=== PATIENT | female | born 1995 ===

== ENCOUNTER 2020-04-19 10:35 | Inpatient (IN) | payer BC ==
[2020-04-19] MEDS ORDERED: Acetaminophen 500 MG Tab PO SCH (13:15)
[2020-04-19 13:40] LABS: BLOOD UREA NITROGEN,BUN 11 mg/dL (7.0-18.0); CARBON DIOXIDE,CO2 19.3 mmol/L (21.0-32.0); CHLORIDE,CL 108 mmol/L (98-107); GLUCOSE RANDOM 74 mg/dL (74-106); SODIUM,NA 139 mmol/L (136-145)
[2020-04-19] MEDS ORDERED: Misoprostol 200 MCG Tab PO PRN (16:02)
[2020-04-19] MEDS ORDERED: Carboprost Tromethamine 250 MCG/1 ML Amp IM PRN (16:02)
[2020-04-19] MEDS ORDERED: Water For Irrigation,Sterile 1,000 ML Container IRR PRN (16:02)
[2020-04-19] MEDS ORDERED: Lidocaine 1% 50 ML MDV INJECT PRN (16:02)
[2020-04-19] MEDS ORDERED: Tranexamic Acid 1,000 MG in Sodium Chloride 0.9% 100 ML IV PRN (16:02)
[2020-04-19] MEDS ORDERED: Methylergonovine 0.2 MG/1 ML Amp IM PRN (16:02)
[2020-04-19] MEDS ORDERED: Sodium Chloride 0.9% 2.5 ML Syringe FLUSH PRN (16:02)
[2020-04-19] MEDS ORDERED: Terbutaline 1 MG/ML SDV SUBCUT PRN (16:02)
[2020-04-19] MEDS ORDERED: Ampicillin 2 GM in Sodium Chloride 0.9% 100 ML IV ONE (16:02)
[2020-04-19] MEDS ORDERED: Nalbuphine 10 MG/1 ML Vial IVPUSH PRN (16:02)
[2020-04-19] MEDS ORDERED: Misoprostol 25 MCG (1/4 of 100 MCG) Tab PO PRN ×2 (16:02)
[2020-04-19] MEDS ORDERED: Sodium Chloride 0.9% 10 ML SDV IV PRN (16:02)
[2020-04-19] MEDS ORDERED: Sodium Chloride 0.9% 10 ML Syringe FLUSH PRN (16:02)
[2020-04-19] MEDS ORDERED: Butorphanol 1 MG/ML SDV IVPUSH PRN (16:02)
[2020-04-19] MEDS ORDERED: Misoprostol 25 MCG (1/4 of 100 MCG) Tab VAG PRN ×2 (16:02)
[2020-04-19] MEDS ORDERED: Oxytocin/0.9 % Sodium Chloride 30 UNIT/500 ML BAG IV SCH ×2 (16:15)
--- NOTE | 2020-04-19 16:47 | PCM.LDHP ---
L&D History of Present Illness - General Date of Service: 04/19/20 Admit Problem/Dx: Patient Status Order with Admit Dx/Problem 04/19/20 12:31 Patient Status [ADT] Routine 04/19/20 15:00 Patient Status [ADT] Routine Admission Diagnosis/Problem Admission Diagnosis/Problem 04/19/20 16:40 at 36 2/7 weeks (DAVION: 05/15/20) presenting to L&D with BPs trending upward the past two days; consistently 130-140s/90s. Bilateral non-pitting edema and headache. Urine showing increasing protein with urine protein creatinine ratio doubling over the last 24 hours. O+, Rubella immune, GBS positive. Source of Information: Patient History Limitations: Reports: No Limitations - History of Present Illness Pain Score: 7 - Related Data Allergies/Adverse Reactions: Allergies Allergy/AdvReac Type Severity Reaction Status Date / Time No Known Allergies Allergy Verified 02/29/20 14:17 Home Medications: Home Meds metFORMIN [Glucophage] 500 mg PO BIDMEALS 02/29/20 [History] H&P Review of Systems - Review of Systems: Review Of Systems: See Below General: Reports: No Symptoms HEENT: Reports: No Symptoms Pulmonary: Reports: No Symptoms Cardiovascular: Reports: No Symptoms Gastrointestinal: Reports: No Symptoms Genitourinary: Reports: No Symptoms Musculoskeletal: Reports: No Symptoms Skin: Reports: No Symptoms Psychiatric: Reports: No Symptoms Neurological: Reports: No Symptoms Hematologic/Lymphatic: Reports: No Symptoms Immunologic: Reports: No Symptoms L&D Exam - Exam Exam: See Below - Vital Signs Weight: 172 lb - OB Specific Movement: Active Heart Tones: Present Heart Rate (FHR) Variability: Moderate (6-25 bmp) Presentation: Vertex - Cintron Score Cintron Score Cervix Position: Midposition Cintron Score Consistency: Soft Cintron Score Effacement: 31-50% Cintron Score Dilation: 1-2 cm Cintron Score 's Station: -2 Cintron Score Total: 6 - Exam General: Alert, Oriented, Cooperative Lungs: Clear to Auscultation, Normal Respiratory Effort Cardiovascular: Regular Rate, Regular Rhythm GI/Abdominal Exam: Soft, Non-Tender Rectal Exam: Deferred Genitourinary: Deferred Back Exam: Normal Inspection, Full Range of Motion Extremities: Normal Inspection, Normal Range of Motion, Non-Tender, Normal Capillary Refill Skin: Warm, Dry, Intact Neurological: Strength Equal Bilateral, Normal Gait, Normal Speech, Normal Tone, Sensation Intact Psychiatric: Alert, Normal Affect, Normal Mood - Patient Data Lab Results Last 24 hrs: Laboratory Results - last 24 hr 04/19/20 04/19/20 04/19/20 Range/Units 13:00 13:00 13:20 WBC 6.03 (4.0-11.0) K/uL RBC 3.48 L (4.30-5.90) M/uL Hgb 8.9 L (12.0-16.0) g/dL Hct 28.5 L (36.0-46.0) % MCV 81.9 (80.0-98.0) fL MCH 25.6 L (27.0-32.0) pg MCHC 31.2 (31.0-37.0) g/dL RDW Std Deviation 40.2 (28.0-62.0) fl RDW Coeff of Maria D 13 (11.0-15.0) % Plt Count 207 (150-400) K/uL MPV 11.70 (7.40-12.00) fL Neut % (Auto) 68.9 (48.0-80.0) % Lymph % (Auto) 20.6 (16.0-40.0) % [place] % (Auto) 10.0 (0.0-15.0) % Eos % (Auto) 0.3 (0.0-7.0) % Baso % (Auto) 0.2 (0.0-1.5) % Neut # (Auto) 4.2 (1.4-5.7) K/uL Lymph # (Auto) 1.2 (0.6-2.4) K/uL [place] # (Auto) 0.6 (0.0-0.8) K/uL Eos # (Auto) 0.0 (0.0-0.7) K/uL Baso # (Auto) 0.0 (0.0-0.1) K/uL Nucleated RBC % 0.0 /100WBC Nucleated RBCs # 0 K/uL Sodium 139 (136-145) mmol/L Potassium 4.0 (3.5-5.1) mmol/L Chloride 108 H (98-107) mmol/L Carbon Dioxide 19.3 L (21.0-32.0) mmol/L BUN 11 (7.0-18.0) mg/dL Creatinine 0.7 (0.6-1.0) mg/dL Est Cr Clr Drug Dosing 103.40 mL/min Estimated GFR (MDRD) > 60.0 ml/min Glucose 74 (74-106) mg/dL Uric Acid 5.6 (2.6-7.2) mg/dL Calcium 8.0 L (8.5-10.1) mg/dL Total Bilirubin 0.3 (0.2-1.0) mg/dL AST 18 (15-37) IU/L ALT 17 (14-63) IU/L Alkaline Phosphatase 142 H (46-116) U/L Total Protein 5.8 L (6.4-8.2) g/dL Albumin 2.3 L (3.4-5.0) g/dL Globulin 3.5 (2.6-4.0) g/dL Albumin/Globulin Ratio 0.7 L (0.9-1.6) Ur Random Creatinine 190.2 mg/dL U Random Total Protein 264.7 H (<11.9) mg/dL Protein/Creatinin Ratio 1.4 Result Diagrams: 04/19/20 13:00 04/19/20 13:00 - Problem List (1) Supervision of normal IUP (intrauterine ) in primigravida SNOMED Code(s): 08561524, 173473727, 520765445, 623231569 ICD Code: Z34.00 - ENCNTR FOR SUPRVSN OF NORMAL FIRST , UNSP TRIMESTER Status: Acute Priority: High Current Visit: Yes Qualifiers: Trimester: third trimester Qualified Code(s): Z34.03 - Encounter for supervision of normal first , third trimester (2) PIH ( induced hypertension), antepartum SNOMED Code(s): 65087753, 15165099 ICD Code: O13.9 - GESTATIONAL HTN W/O SIGNIFICANT PROTEINURIA, UNSP TRIMESTER Status: Acute Priority: High Current Visit: Yes Problem List Initiated/Reviewed/Updated: Yes Orders Last 24hrs: Active Orders 24 hr Category Date Time Status Patient Status [ADT] Routine ADT 04/19/20 15:00 Active Bedrest Bathroom Privileges [RC] ASDIRECTED Care 04/19/20 16:02 Active Communication Order [RC] ASDIRECTED Care 04/19/20 16:02 Active Communication Order [RC] ASDIRECTED Care 04/19/20 16:02 Active Communication Order [RC] ASDIRECTED Care 04/19/20 16:02 Active Heart Tones [RC] CONTINUOUS Care 04/19/20 16:02 Active Non Stress Test [RC] PER UNIT ROUTINE Care 04/19/20 12:31 Active Non Stress Test [RC] PER UNIT ROUTINE Care 04/19/20 16:02 Active May Shower [RC] ASDIRECTED Care 04/19/20 16:02 Active Notify Provider [RC] PRN Care 04/19/20 16:02 Active Notify Provider [RC] PRN Care 04/19/20 16:02 Active Notify Provider [RC] PRN Care 04/19/20 16:02 Active Notify Provider [RC] STAT Care 04/19/20 16:02 Active Oxygen Therapy [RC] ASDIRECTED Care 04/19/20 16:02 Active Up ad Jane [RC] ASDIRECTED Care 04/19/20 12:31 Active Up ad Jane [RC] ASDIRECTED Care 04/19/20 16:02 Active Vaginal Exam [RC] Click to Edit Care 04/19/20 12:31 Active Vaginal Exam [RC] PRN Care 04/19/20 16:02 Active Vaginal Exam [RC] PRN Care 04/19/20 16:02 Active Vital Signs [RC] PER UNIT ROUTINE Care 04/19/20 12:31 Active Vital Signs [RC] PER UNIT ROUTINE Care 04/19/20 16:02 Active Vital Signs [RC] PER UNIT ROUTINE Care 04/19/20 16:02 Active Clear Liquid Diet [DIET] Diet 04/19/20 Dinner Active CBC W/O DIFF,HEMOGRAM [HEME] Routine Lab 04/19/20 16:02 Ordered CORONAVIRUS COVID-19 BLANQUITA [MOLEC] Stat Lab 04/19/20 15:52 Received RPR (SYPHILIS SERO) W/ RFLX [REF] Routine Lab 04/19/20 16:02 Ordered TYPE AND SCREEN [BBK] Routine Lab 04/19/20 16:02 Ordered Acetaminophen [Tylenol Extra Strength] Med 04/19/20 13:15 Active 1,000 mg PO .ONCE Ampicillin 1 gm Med 04/19/20 16:15 Active Sodium Chloride 0.9% [Normal Saline] 50 ml IV Q4H Butorphanol [Stadol] Med 04/19/20 16:02 Active 1 mg IVPUSH Q1H PRN Carboprost Tromethamine [Hemabate DS] Med 04/19/20 16:02 Active 250 mcg IM ASDIRECTED PRN Lactated Ringers [Ringers, Lactated] 1,000 ml Med 04/19/20 16:15 Active IV ASDIRECTED Lidocaine 1% [Xylocaine 1%] Med 04/19/20 16:02 Active 50 ml INJECT ONETIME PRN Methylergonovine [Methergine] Med 04/19/20 16:02 Active 0.2 mg IM ASDIRECTED PRN Nalbuphine [Nubain] Med 04/19/20 16:02 Active 10 mg IVPUSH Q1H PRN Ondansetron [Zofran] Med 04/19/20 16:02 Active 4 mg IVPUSH Q4H PRN Oxytocin/0.9 % Sodium Chloride [Oxytocin 30 Unit/500 ML Med 04/19/20 16:15 Active -NS] 30 unit in 500 ml IV TITRATE Oxytocin/0.9 % Sodium Chloride [Oxytocin 30 Unit/500 ML Med 04/19/20 16:15 Active -NS] 30 unit in 500 ml IV TITRATE Sodium Chloride 0.9% [Normal Saline] Med 04/19/20 16:02 Active 10 ml IV ASDIRECTED PRN Sodium Chloride 0.9% [Saline Flush] Med 04/19/20 16:02 Active 10 ml FLUSH ASDIRECTED PRN Sodium Chloride 0.9% [Saline Flush] Med 04/19/20 16:02 Active 2.5 ml FLUSH ASDIRECTED PRN Terbutaline [Brethine] Med 04/19/20 16:02 Active 0.25 mg SUBCUT ASDIRECTED PRN Tranexamic Acid [Cyklokapron] 1,000 mg Med 04/19/20 16:02 Active Sodium Chloride 0.9% [Normal Saline] 100 ml IV ONETIME Water For Irrigation,Sterile [Sterile Water for Med 04/19/20 16:02 Active Irrigation] 1,000 ml IRR ASDIRECTED PRN miSOPROStoL [Cytotec] Med 04/19/20 16:02 Active 200 mcg PO ONETIME PRN miSOPROStoL [Cytotec] Med 04/19/20 16:02 Active 25 mcg PO ONETIME PRN miSOPROStoL [Cytotec] Med 04/19/20 16:02 Active 25 mcg PO Q4H PRN miSOPROStoL [Cytotec] Med 04/19/20 16:02 Active 25 mcg VAG ONETIME PRN miSOPROStoL [Cytotec] Med 04/19/20 16:02 Active 25 mcg VAG Q4H PRN Scalp Electrode [WOMSER] Per Unit Routine Oth 04/19/20 16:02 Ordered Medication Administration Instruction [OM.PC] Q3H Oth 04/19/20 16:15 Ordered Peripheral IV Insertion Adult [OM.PC] Routine Oth 04/19/20 16:02 Ordered Resuscitation Status Routine Resus Stat 04/19/20 12:31 Ordered Medication Orders Acetaminophen (Tylenol Extra Strength) 1,000 mg PO .ONCE JULIAN Last Admin: 04/19/20 13:44 Dose: 1,000 mg Documented by: ABBE Butorphanol Tartrate (Stadol) 1 mg IVPUSH Q1H PRN PRN Reason: Pain Carboprost Tromethamine (Hemabate Ds) 250 mcg IM ASDIRECTED PRN PRN Reason: Post Hemorrhage Lactated Ringer's (Ringers, Lactated) 1,000 mls @ 150 mls/hr IV ASDIRECTED JULIAN Oxytocin/Sodium Chloride (Oxytocin 30 Unit/500 Ml-Ns) 30 unit in 500 mls @ 500 mls/hr IV TITRATE JULIAN Tranexamic Acid 1,000 mg/ (Sodium Chloride) 110 mls @ 660 mls/hr IV ONETIME PRN PRN Reason: Bleeding Oxytocin/Sodium Chloride (Oxytocin 30 Unit/500 Ml-Ns) 30 unit in 500 mls @ 2 mls/hr IV TITRATE JULIAN; Protocol Ampicillin Sodium 1 gm/ Sodium (Chloride) 50 mls @ 100 mls/hr IV Q4H [facility] Lidocaine HCl (Xylocaine 1%) 50 ml INJECT ONETIME PRN PRN Reason: Laceration repair Methylergonovine Maleate (Methergine) 0.2 mg IM ASDIRECTED PRN PRN Reason: Post Hemorrhage Misoprostol (Cytotec) 200 mcg PO ONETIME PRN PRN Reason: Post Hemorrhage Misoprostol (Cytotec) 25 mcg VAG ONETIME PRN PRN Reason: Cervical Ripening Misoprostol (Cytotec) 25 mcg VAG Q4H PRN PRN Reason: Cervical Ripening Misoprostol (Cytotec) 25 mcg PO ONETIME PRN PRN Reason: Cervical Ripening Misoprostol (Cytotec) 25 mcg PO Q4H PRN PRN Reason: Cervical Ripening Nalbuphine HCl (Nubain) 10 mg IVPUSH Q1H PRN PRN Reason: Pain (severe 7-10) Ondansetron HCl (Zofran) 4 mg IVPUSH Q4H PRN PRN Reason: Nausea/Vomiting Sodium Chloride (Saline Flush) 10 ml FLUSH ASDIRECTED PRN PRN Reason: Keep Vein Open Sodium Chloride (Saline Flush) 2.5 ml FLUSH ASDIRECTED PRN PRN Reason: Keep Vein Open Sodium Chloride (Normal Saline) 10 ml IV ASDIRECTED PRN PRN Reason: IV Use Sterile Water (Sterile Water For Irrigation) 1,000 ml IRR ASDIRECTED PRN PRN Reason: delivery Terbutaline Sulfate (Brethine) 0.25 mg SUBCUT ASDIRECTED PRN PRN Reason: Tacysystole Assessment/Plan Comment:: Admit A: at 36 2/7 weeks (DAVION: 05/15/20) presenting to L&D with BPs trending upward the past two days; consistently 130-140s/90s. Bilateral non-pitting edema and headache. Urine showing increasing protein with urine protein creatinine ratio doubling over the last 24 hours. O+, Rubella immune, GBS positive. P: Admit for induction of labor; anticipate ; cytotec to pitocin; continuous monitoring of blood pressure; epidural PRN; Dr. Lua updated.
[2020-04-19] MEDS: Ondansetron 4 MG/2 ML SDV IVPUSH PRN (17:05)
[2020-04-19] MEDS: Lactated Ringers 1,000 ML IV SCH (18:24)
[2020-04-19] MEDS ORDERED: NIFEdipine 30 MG Tab.ER PO ONE (19:15)
[2020-04-19] MEDS: Ampicillin 1 GM in Sodium Chloride 0.9% 50 ML IV SCH ×2 (19:52→21:55)
[2020-04-20] MEDS ORDERED: hydrOXYzine Pamoate 25 MG Cap PO ONE (01:22)
[2020-04-20] MEDS: Ampicillin 1 GM in Sodium Chloride 0.9% 50 ML IV SCH ×5 (01:57→18:45)
[2020-04-20] MEDS ORDERED: Acetaminophen 500 MG Tab PO PRN ×2 (07:53→22:25)
[2020-04-20] MEDS: Ondansetron 4 MG/2 ML SDV IVPUSH PRN ×2 (11:55→17:31)
[2020-04-20] MEDS ORDERED: Bupivicaine/fentaNYL/NS 250 ML ONE (15:04)
[2020-04-20] MEDS: Lactated Ringers 1,000 ML IV SCH ×2 (15:05→18:44)
--- NOTE | 2020-04-20 15:51 | PCM.PREANE ---
Preanesthetic Assessment - Anesthesia/Transfusion/Family Hx Anesthesia History: Prior Anesthesia Without Reaction Family History of Anesthesia Reaction: No Transfusion History: No Prior Transfusion(s) Additional History: States had scoliosis in high school. - Review of Systems General: No Symptoms Pulmonary: No Symptoms Cardiovascular: No Symptoms Gastrointestinal: No Symptoms Neurological: No Symptoms Other: Reports: None (Denies any personal or family hx of bleeding or clotting problems) - Physical Assessment Vital Signs: Last Vital Signs Temp Pulse Resp BP 132/86 04/19/20 19:42 Pulse Ox Height: 1.6 m Weight: 78.018 kg ASA Class: 2 Mental Status: Alert & Oriented x3 Airway Class: Mallampati = 2 Dentition: Reports: Normal Dentition ROM/Head Extension: Full - Lab Values: Laboratory Last Values WBC 7.70 K/uL (4.0-11.0) 04/19/20 16:45 RBC 3.79 M/uL (4.30-5.90) L 04/19/20 16:45 Hgb 9.7 g/dL (12.0-16.0) L 04/19/20 16:45 Hct 30.9 % (36.0-46.0) L 04/19/20 16:45 MCV 81.5 fL (80.0-98.0) 04/19/20 16:45 MCH 25.6 pg (27.0-32.0) L 04/19/20 16:45 MCHC 31.4 g/dL (31.0-37.0) 04/19/20 16:45 RDW Std Deviation 40.1 fl (28.0-62.0) 04/19/20 16:45 RDW Coeff of Maria D 13 % (11.0-15.0) 04/19/20 16:45 Plt Count 229 K/uL (150-400) 04/19/20 16:45 MPV 11.90 fL (7.40-12.00) 04/19/20 16:45 Neut % (Auto) 68.9 % (48.0-80.0) 04/19/20 13:00 Lymph % (Auto) 20.6 % (16.0-40.0) 04/19/20 13:00 [place] % (Auto) 10.0 % (0.0-15.0) 04/19/20 13:00 Eos % (Auto) 0.3 % (0.0-7.0) 04/19/20 13:00 Baso % (Auto) 0.2 % (0.0-1.5) 04/19/20 13:00 Neut # (Auto) 4.2 K/uL (1.4-5.7) 04/19/20 13:00 Lymph # (Auto) 1.2 K/uL (0.6-2.4) 04/19/20 13:00 [place] # (Auto) 0.6 K/uL (0.0-0.8) 04/19/20 13:00 Eos # (Auto) 0.0 K/uL (0.0-0.7) 04/19/20 13:00 Baso # (Auto) 0.0 K/uL (0.0-0.1) 04/19/20 13:00 Nucleated RBC % 0.0 /100WBC 04/19/20 16:45 Nucleated RBCs # 0 K/uL 04/19/20 16:45 Sodium 139 mmol/L (136-145) 04/19/20 13:00 Potassium 4.0 mmol/L (3.5-5.1) 04/19/20 13:00 Chloride 108 mmol/L (98-107) H 04/19/20 13:00 Carbon Dioxide 19.3 mmol/L (21.0-32.0) L 04/19/20 13:00 BUN 11 mg/dL (7.0-18.0) 04/19/20 13:00 Creatinine 0.7 mg/dL (0.6-1.0) 04/19/20 13:00 Est Cr Clr Drug Dosing 103.40 mL/min 04/19/20 13:00 Estimated GFR (MDRD) > 60.0 ml/min 04/19/20 13:00 Glucose 74 mg/dL (74-106) 04/19/20 13:00 POC Glucose 98 mg/dL (60-110) 04/19/20 23:11 Uric Acid 5.6 mg/dL (2.6-7.2) 04/19/20 13:00 Calcium 8.0 mg/dL (8.5-10.1) L 04/19/20 13:00 Total Bilirubin 0.3 mg/dL (0.2-1.0) 04/19/20 13:00 AST 18 IU/L (15-37) 04/19/20 13:00 ALT 17 IU/L (14-63) 04/19/20 13:00 Alkaline Phosphatase 142 U/L (46-116) H 04/19/20 13:00 Total Protein 5.8 g/dL (6.4-8.2) L 04/19/20 13:00 Albumin 2.3 g/dL (3.4-5.0) L 04/19/20 13:00 Globulin 3.5 g/dL (2.6-4.0) 04/19/20 13:00 Albumin/Globulin Ratio 0.7 (0.9-1.6) L 04/19/20 13:00 Ur Random Creatinine 190.2 mg/dL 04/19/20 13:20 U Random Total Protein 264.7 mg/dL (<11.9) H 04/19/20 13:20 Protein/Creatinin Ratio 1.4 04/19/20 13:20 SARS-CoV-2 RNA (BLANQUITA) NEGATIVE (NEGATIVE) 04/19/20 15:52 Blood Type O POSITIVE 04/19/20 16:45 Antibody Screen NEGATIVE 04/19/20 16:45 - Allergies Allergies/Adverse Reactions: Allergies Allergy/AdvReac Type Severity Reaction Status Date / Time No Known Allergies Allergy Verified 04/19/20 18:35 - Acknowledgements Anesthesia Type Planned: Epidural Pt an Appropriate Candidate for the Planned Anesthesia: Yes Alternatives and Risks of Anesthesia Discussed w Pt/Guardian: Yes Pt/Guardian Understands and Agrees with Anesthesia Plan: Yes PreAnesthesia Questionnaire HEENT History: Reports: Other (See Below) Other HEENT History: Wears glasses [employer] History: Reports: Endocrine/Metabolic History: Reports: Diabetes, Gestational - Past Surgical History HEENT Surgical History: Reports: Tonsillectomy, Other (See Below) Other HEENT Surgeries/Procedures: [place] teeth removal, teeth extraction Endocrine Surgical History: Reports: None - SUBSTANCE USE Smoking Status *Q: Former Smoker Tobacco Use Within Last Twelve Months: Cigarettes Days Per Week of Alcohol Use: 2 Number of Drinks Per Day: 2 Total Drinks Per Week: 4 Recreational Drug Use History: No - HOME MEDS Home Medications: Home Meds metFORMIN [Glucophage] 500 mg PO BIDMEALS 02/29/20 [History] - CURRENT (IN HOUSE) MEDS Current Meds: Current Medications Acetaminophen (Tylenol Extra Strength) 1,000 mg PO .ONCE JULIAN Last Admin: 04/19/20 13:44 Dose: 1,000 mg Documented by: Acetaminophen (Tylenol Extra Strength) 1,000 mg PO Q4H PRN PRN Reason: Pain Butorphanol Tartrate (Stadol) 1 mg IVPUSH Q1H PRN PRN Reason: Pain Last Admin: 04/20/20 11:57 Dose: 1 mg Documented by: Carboprost Tromethamine (Hemabate Ds) 250 mcg IM ASDIRECTED PRN PRN Reason: Post Hemorrhage Lactated Ringer's (Ringers, Lactated) 1,000 mls @ 150 mls/hr IV ASDIRECTED JULIAN Last Infusion: 04/20/20 15:44 Dose: 150 mls/hr Documented by: Oxytocin/Sodium Chloride (Oxytocin 30 Unit/500 Ml-Ns) 30 unit in 500 mls @ 500 mls/hr IV TITRATE JULIAN Tranexamic Acid 1,000 mg/ (Sodium Chloride) 110 mls @ 660 mls/hr IV ONETIME PRN PRN Reason: Bleeding Oxytocin/Sodium Chloride (Oxytocin 30 Unit/500 Ml-Ns) 30 unit in 500 mls @ 2 mls/hr IV TITRATE JULIAN; Protocol Last Titration: 04/20/20 15:44 Dose: 4 munits/min, 4 mls/hr Documented by: Ampicillin Sodium 1 gm/ Sodium (Chloride) 50 mls @ 100 mls/hr IV Q4H JULIAN Last Admin: 04/20/20 14:29 Dose: 100 mls/hr Documented by: Lidocaine HCl (Xylocaine 1%) 50 ml INJECT ONETIME PRN PRN Reason: Laceration repair Methylergonovine Maleate (Methergine) 0.2 mg IM ASDIRECTED PRN PRN Reason: Post Hemorrhage Misoprostol (Cytotec) 200 mcg PO ONETIME PRN PRN Reason: Post Hemorrhage Misoprostol (Cytotec) 25 mcg VAG ONETIME PRN PRN Reason: Cervical Ripening Last Admin: 04/19/20 17:11 Dose: 25 mcg Documented by: Misoprostol (Cytotec) 25 mcg VAG Q4H PRN PRN Reason: Cervical Ripening Misoprostol (Cytotec) 25 mcg PO ONETIME PRN PRN Reason: Cervical Ripening Last Admin: 04/19/20 17:12 Dose: 25 mcg Documented by: Misoprostol (Cytotec) 25 mcg PO Q4H PRN PRN Reason: Cervical Ripening Nalbuphine HCl (Nubain) 10 mg IVPUSH Q1H PRN PRN Reason: Pain (severe 7-10) Ondansetron HCl (Zofran) 4 mg IVPUSH Q4H PRN PRN Reason: Nausea/Vomiting Last Admin: 04/20/20 11:55 Dose: 4 mg Documented by: Sodium Chloride (Saline Flush) 10 ml FLUSH ASDIRECTED PRN PRN Reason: Keep Vein Open Sodium Chloride (Saline Flush) 2.5 ml FLUSH ASDIRECTED PRN PRN Reason: Keep Vein Open Sodium Chloride (Normal Saline) 10 ml IV ASDIRECTED PRN PRN Reason: IV Use Sterile Water (Sterile Water For Irrigation) 1,000 ml IRR ASDIRECTED PRN PRN Reason: delivery Terbutaline Sulfate (Brethine) 0.25 mg SUBCUT ASDIRECTED PRN PRN Reason: Tacysystole Last Admin: 04/19/20 21:18 Dose: 0.25 mg Documented by: Discontinued Medications Hydroxyzine Pamoate (Vistaril) 25 mg PO ONETIME ONE Stop: 04/20/20 01:23 Last Admin: 04/20/20 01:57 Dose: 25 mg Documented by: Ampicillin Sodium 2 gm/ Sodium (Chloride) 100 mls @ 200 mls/hr IV ONETIME ONE Stop: 04/19/20 16:31 Last Admin: 04/19/20 17:09 Dose: 200 mls/hr Documented by: Fentanyl/Bupivacaine HCl (Fentanyl/Bupivacaine/Ns 2 Mcg-0.125% 250 Ml) Confirm Administered Dose 250 mls @ as directed .ROUTE .STK-MED ONE Stop: 04/20/20 15:05 Nifedipine (Procardia Xl) 60 mg PO ONETIME ONE Stop: 04/19/20 19:16 Last Admin: 04/19/20 19:42 Dose: 60 mg Documented by:
[2020-04-20] MEDS ORDERED: Ibuprofen 400 MG Tab PO PRN (22:25)
[2020-04-20] MEDS ORDERED: Bisacodyl 10 MG Supp RECTAL PRN (22:25)
[2020-04-20] MEDS ORDERED: Benzocaine/Menthol 20%-0.5% Spray 78 GM Cannister TOP PRN (22:25)
[2020-04-20] MEDS ORDERED: Witch Hazel Medicated Pads 40/Jar TOP PRN (22:25)
[2020-04-20] MEDS ORDERED: oxyCODONE 5 MG Tab PO PRN (22:25)
[2020-04-20] MEDS ORDERED: Lanolin 100% Cream 7 GM Tube TOP PRN (22:25)
[2020-04-20] MEDS ORDERED: NIFEdipine 30 MG Tab.ER PO SCH (22:30)
[2020-04-20] MEDS: Docusate Sodium 100 MG Cap PO PRN (22:38)
[2020-04-20] MEDS: Ibuprofen 800 MG Tab PO PRN (22:38)
--- NOTE | 2020-04-20 22:50 | PCM.DEL ---
L & D Note - General Info Date of Service: 04/20/20 Mother's Due Date: 05/15/20 - Delivery Note Labor: Augmented by Oxytocin Cervical Ripening Method: Balloon Device, Misoprostil Delivery Outcome: Livebirth Infant Delivery Method: Spontaneous Vaginal Delivery-Single Delivery Mode: Spontaneous Presentation: Right Occiput Anterior (SARAY) Nuchal Cord: Present (Somersaulted through) Anesthesia Type: Epidural Amniotic Fluid Description: Clear Episiotomy Type: None Laceration: 3rd Degree (Repaired, hemostatic, edematous) Suture type: Vicryl Suture size: 3-0 Placenta: Spontaneous Cord: 3 Vessels Estimated Blood Loss: 450 Resuscitation Needed: Yes : Cathether, Stimulated, Warmed, [place] Used Provider: Aleida Escobedo Score 1 min: 2 Score 5 min: 6 Score 10 min: 8 Post Delivery Events: Shoulder Dystocia (60 seconds) Second Stage Interventions: Reports: Encouragement Given, Pushing Effectively, Pushing, McRobert's Position, Pushing, Stirrups/Leg Supports Delivery Comments (Free Text/Narrative):: Elza is a 25 yo at 36.2 weeks gestation (DAVION 05/15/2020) S/P of viable NBF. Sample Mounter at bedside for anticipated . Medical IOL for exacerbation of symptomatic PIH (severe pre-eclampsia), GDM controlled with metformin. O pos, RI, GBS pos with appropriate antibiotic prophylaxis. NBF head birthed SARAY without issue. Tight nuchal cord x 1 noted, unable to reduce. Delay in of body x 60 seconds. Mother was directed to stop pushing. Suprapubic and Nesha position attempted. Sweep of posterior shoulder attempted, unable to reduce posterior shoulder but was able to sweep body into OA position, shoulder dystocia then relieved with reduction of anterior shoulder and NBF somersaulted through tight nuchal. NBF placed to maternal abdomen for warm, dry, suction. Umbilical cord was then clamped x2 and cut by CNM. NBF then immediately brought to warmer for assessment and resuscitation. 3rd degree perineal laceration repaired with 3.[address] x 2 under epidural and local lidocaine analgesia. Partial anterior anal sphincter repaired with figure 8 suture; perineum then repaired. Perineal laceration hemostatic, edematous. Vaginal/rectal exams completed, patent, repaired. Dr. Lua notified and with inspect in the am. Uterus firm @ U. Small to moderate rubra lochia. Patient resting comfortably in bed. BPs 140-150s/80s-90s. Procardia XL 60 mg to be given now. - General Info Date of Service: 04/20/20 Admission Dx/Problem (Free Text): Patient Status Order with Admit Dx/Problem 04/19/20 12:31 Patient Status [ADT] Routine 04/19/20 15:00 Patient Status [ADT] Routine Admission Diagnosis/Problem Admission Diagnosis/Problem 04/19/20 16:40 at 36 2/7 weeks (DAVION: 05/15/20) presenting to L&D with BPs trending upward the past two days; consistently 130-140s/90s. Bilateral non-pitting edema and headache. Urine showing increasing protein with urine protein creatinine ratio doubling over the last 24 hours. O+, Rubella immune, GBS positive. Functional Status: Reports: Pain Controlled - Review of Systems General: Reports: No Symptoms HEENT: Reports: No Symptoms Pulmonary: Reports: No Symptoms Cardiovascular: Reports: No Symptoms Gastrointestinal: Reports: No Symptoms Genitourinary: Reports: No Symptoms Musculoskeletal: Reports: No Symptoms Skin: Reports: No Symptoms Neurological: Reports: No Symptoms Psychiatric: Reports: No Symptoms - Patient Data Vitals - Most Recent: Last Vital Signs Temp Pulse Resp BP 132/86 04/19/20 19:42 Pulse Ox Weight - Most Recent: 172 lb Lab Results Last 24 Hours: Laboratory Results - last 24 hr 04/19/20 Range/Units 23:11 POC Glucose 98 (60-110) mg/dL Med Orders - Current: Current Medications Acetaminophen (Tylenol Extra Strength) 500 mg PO Q4H PRN PRN Reason: Pain Acetaminophen (Tylenol Extra Strength) 1,000 mg PO Q4H PRN PRN Reason: Pain Benzocaine/Menthol (Dermoplast Pain Relief 20%-0.5% [place]) 78 gm TOP ASDIRECTED PRN PRN Reason: Perineal Comfort Measure Bisacodyl (Dulcolax) 10 mg RECTAL ONETIME PRN PRN Reason: Constipation Docusate Sodium (Colace) 100 mg PO BID PRN PRN Reason: Constipation Emollient Ointment (Lansinoh Hpa) 0 gm TOP ASDIRECTED PRN PRN Reason: Sore Nipples Ibuprofen (Motrin) 400 mg PO Q4H PRN PRN Reason: Pain Ibuprofen (Motrin) 800 mg PO Q6H PRN PRN Reason: Pain Nifedipine (Procardia Xl) 60 mg PO DAILY JULIAN Oxycodone HCl (Oxycodone) 5 mg PO Q2H PRN PRN Reason: Pain Witch Roxanne (Tucks) 1 pad TOP ASDIRECTED PRN PRN Reason: comfort care Discontinued Medications Acetaminophen (Tylenol Extra Strength) 1,000 mg PO .ONCE JULIAN Last Admin: 04/19/20 13:44 Dose: 1,000 mg Documented by: Acetaminophen (Tylenol Extra Strength) 1,000 mg PO Q4H PRN PRN Reason: Pain Butorphanol Tartrate (Stadol) 1 mg IVPUSH Q1H PRN PRN Reason: Pain Last Admin: 04/20/20 11:57 Dose: 1 mg Documented by: Carboprost Tromethamine (Hemabate Ds) 250 mcg IM ASDIRECTED PRN PRN Reason: Post Hemorrhage Hydroxyzine Pamoate (Vistaril) 25 mg PO ONETIME ONE Stop: 04/20/20 01:23 Last Admin: 04/20/20 01:57 Dose: 25 mg Documented by: Lactated Ringer's (Ringers, Lactated) 1,000 mls @ 150 mls/hr IV ASDIRECTED JULIAN Last Admin: 04/20/20 18:44 Dose: 150 mls/hr Documented by: Oxytocin/Sodium Chloride (Oxytocin 30 Unit/500 Ml-Ns) 30 unit in 500 mls @ 500 mls/hr IV TITRATE JULIAN Tranexamic Acid 1,000 mg/ (Sodium Chloride) 110 mls @ 660 mls/hr IV ONETIME PRN PRN Reason: Bleeding Oxytocin/Sodium Chloride (Oxytocin 30 Unit/500 Ml-Ns) 30 unit in 500 mls @ 2 mls/hr IV TITRATE JULIAN; Protocol Last Titration: 04/20/20 15:44 Dose: 4 munits/min, 4 mls/hr Documented by: Ampicillin Sodium 2 gm/ Sodium (Chloride) 100 mls @ 200 mls/hr IV ONETIME ONE Stop: 04/19/20 16:31 Last Admin: 04/19/20 17:09 Dose: 200 mls/hr Documented by: Ampicillin Sodium 1 gm/ Sodium (Chloride) 50 mls @ 100 mls/hr IV Q4H JULIAN Last Admin: 04/20/20 18:45 Dose: 100 mls/hr Documented by: Fentanyl/Bupivacaine HCl (Fentanyl/Bupivacaine/Ns 2 Mcg-0.125% 250 Ml) Confirm Administered Dose 250 mls @ as directed .ROUTE .STK-MED ONE Stop: 04/20/20 15:05 Last Admin: 04/20/20 17:43 Dose: Not Given Documented by: Lidocaine HCl (Xylocaine 1%) 50 ml INJECT ONETIME PRN PRN Reason: Laceration repair Methylergonovine Maleate (Methergine) 0.2 mg IM ASDIRECTED PRN PRN Reason: Post Hemorrhage Misoprostol (Cytotec) 200 mcg PO ONETIME PRN PRN Reason: Post Hemorrhage Misoprostol (Cytotec) 25 mcg VAG ONETIME PRN PRN Reason: Cervical Ripening Last Admin: 04/19/20 17:11 Dose: 25 mcg Documented by: Misoprostol (Cytotec) 25 mcg VAG Q4H PRN PRN Reason: Cervical Ripening Misoprostol (Cytotec) 25 mcg PO ONETIME PRN PRN Reason: Cervical Ripening Last Admin: 04/19/20 17:12 Dose: 25 mcg Documented by: Misoprostol (Cytotec) 25 mcg PO Q4H PRN PRN Reason: Cervical Ripening Nalbuphine HCl (Nubain) 10 mg IVPUSH Q1H PRN PRN Reason: Pain (severe 7-10) Nifedipine (Procardia Xl) 60 mg PO ONETIME ONE Stop: 04/19/20 19:16 Last Admin: 04/19/20 19:42 Dose: 60 mg Documented by: Ondansetron HCl (Zofran) 4 mg IVPUSH Q4H PRN PRN Reason: Nausea/Vomiting Last Admin: 04/20/20 17:31 Dose: 4 mg Documented by: Sodium Chloride (Saline Flush) 10 ml FLUSH ASDIRECTED PRN PRN Reason: Keep Vein Open Sodium Chloride (Saline Flush) 2.5 ml FLUSH ASDIRECTED PRN PRN Reason: Keep Vein Open Sodium Chloride (Normal Saline) 10 ml IV ASDIRECTED PRN PRN Reason: IV Use Sterile Water (Sterile Water For Irrigation) 1,000 ml IRR ASDIRECTED PRN PRN Reason: delivery Terbutaline Sulfate (Brethine) 0.25 mg SUBCUT ASDIRECTED PRN PRN Reason: Tacysystole Last Admin: 04/19/20 21:18 Dose: 0.25 mg Documented by: - Exam General: Alert, Oriented, Cooperative, No Acute Distress HEENT: Pupils Equal, Pupils Reactive, EOMI, Mucous Membr. Moist/[place] Neck: Supple Lungs: Clear to Auscultation, Normal Respiratory Effort Cardiovascular: Regular Rate, Regular Rhythm GI/Abdominal Exam: Normal Bowel Sounds, Soft, Non-Tender, No Organomegaly, No Distention (Female) Exam: Normal External Exam, Normal Bimanual Exam, Enlarged Uterus ( uterus, firm @U), Vaginal Bleeding (Small to moderate rubra lochia, no clots), Vaginal Tears (Repaired, hemostatic, edematous.) Back Exam: Normal Inspection, Full Range of Motion Extremities: Normal Inspection, Normal Range of Motion, Non-Tender, No Pedal Edema, Normal Capillary Refill Skin: Warm, Dry, Intact Wound/Incisions: No Drainage Neurological: No New Focal Deficit (BLE epidural analgesia) Psy/Mental Status: Alert, Normal Affect, Normal Mood - Problem List & Annotations (1) (spontaneous vaginal delivery) SNOMED Code(s): 183155982 Code(s): O80 - ENCOUNTER FOR FULL-TERM UNCOMPLICATED DELIVERY Status: Acute Priority: High Current Visit: Yes (2) Shoulder dystocia, delivered SNOMED Code(s): 002572130, 747244760 Code(s): O66.0 - OBSTRUCTED LABOR DUE TO SHOULDER DYSTOCIA Status: Acute Priority: High Current Visit: Yes (3) 36 weeks gestation of SNOMED Code(s): 87225827 Code(s): Z3A.36 - 36 WEEKS GESTATION OF Status: Acute Priority: High Current Visit: Yes (4) GDM, class A2 SNOMED Code(s): 83592365 Code(s): O24.419 - GESTATIONAL DIABETES MELLITUS IN , UNSP CONTROL Status: Acute Priority: High Current Visit: Yes (5) PIH ( induced hypertension), antepartum SNOMED Code(s): 26118480, 80211576 Code(s): O13.9 - GESTATIONAL HTN W/O SIGNIFICANT PROTEINURIA, UNSP TRIMESTER Status: Acute Priority: High Current Visit: Yes - Problem List Review Problem List Initiated/Reviewed/Updated: Yes - My Orders Last 24 Hours: My Active Orders 04/20/20 Dinner Regular Diet [DIET] 04/20/20 22:25 Patient Status [ADT] Routine May Shower [RC] ASDIRECTED Up ad Jane [RC] ASDIRECTED Vital Signs [RC] PER UNIT ROUTINE Acetaminophen [Tylenol Extra Strength] 1,000 mg PO Q4H PRN Acetaminophen [Tylenol Extra Strength] 500 mg PO Q4H PRN Benzocaine/Menthol [Dermoplast Pain Relief 20%-0.5% [place]] 78 gm TOP ASDIRECTED PRN Docusate Sodium [Colace] 100 mg PO BID PRN Ibuprofen [Motrin] 400 mg PO Q4H PRN Ibuprofen [Motrin] 800 mg PO Q6H PRN Lanolin [Lansinoh HPA] See Dose Instructions TOP ASDIRECTED PRN bisacodyL [Dulcolax] 10 mg RECTAL ONETIME PRN oxyCODONE 5 mg PO Q2H PRN witch Roxanne [Tucks] 1 pad TOP ASDIRECTED PRN Assess Lochia [WOMSER] Per Unit Routine Assess Uterine Involution [WOMSER] Per Unit Routine Ice Therapy [OM.PC] Per Unit Routine Perineal Care [OM.PC] Per Unit Routine Peripheral IV Discontinue [OM.PC] Routine Sitz Bath [OM.PC] Per Unit Routine Resuscitation Status Routine 04/20/20 22:26 Cooling Warming Measures [RC] ASDIRECTED 04/20/20 22:30 Iron Polysaccharides Complex [Ferrex 150] 150 mg PO BID NIFEdipine [Procardia XL] 60 mg PO DAILY 04/21/20 05:11 HEMOGLOBIN/HEMATOCRIT,HH [HEME] Timed - Plan Plan:: Admit inpatient to unit S/P complicated with 60 second shoulder dystocia. Hx of GDM (metformin) and severe pre-eclampsia. GBS pos with appropriate antibiotic prophylaxis. 60 mg Procardia XL PO daily. See new orders. Dr. Lua notified and agreeable with POC.
[2020-04-20] MEDS: Iron Polysaccharides Complex 150 MG Cap PO SCH (23:43)
--- NOTE | 2020-04-21 07:02 | PCM48HPAN ---
Post Anesthesia Note - EVALUATION WITHIN 48HRS OF ANESTHETIC Vital Signs in Normal Range: Yes Patient Participated in Evaluation: Yes Respiratory Function Stable: Yes Airway Patent: Yes Cardiovascular Function Stable: Yes Hydration Status Stable: Yes Pain Control Satisfactory: Yes Nausea and Vomiting Control Satisfactory: Yes Mental Status Recovered: Yes Vital Signs: Last Vital Signs Temp 36.7 C 04/21/20 04:29 Pulse 96 04/21/20 04:29 Resp 16 04/21/20 04:29 BP 122/75 04/21/20 04:29 Pulse Ox 98 04/21/20 04:29 - COMMENTS/OBSERVATIONS Free Text/Narrative:: Patient up in bathroom and walking in room. Patient states she feels fine and does not have a headache. Still small amount of fluid leaking from epidural catheter site but patient asymptomatic. Patient assured that epidural placement did not return CSF during placement.
[2020-04-21] MEDS: Iron Polysaccharides Complex 150 MG Cap PO SCH ×2 (09:21→20:43)
--- NOTE | 2020-04-21 10:24 | PCM.PNPP ---
- General Info Date of Service: 04/21/20 Admission Dx/Problem (Free Text): Patient Status Order with Admit Dx/Problem 04/19/20 12:31 Patient Status [ADT] Routine 04/19/20 15:00 Patient Status [ADT] Routine Admission Diagnosis/Problem Admission Diagnosis/Problem 04/19/20 16:40 Elza is a 25 yo PPD0 S/P complicated by shoulder dystocia (60 seconds) to NBF at 36.3 weeks gestation. O pos, RI, GBS pos with adequate antibiotic prophylaxis prior to . Pertinent history includes: GDM controlled with metformin, PIH with proteinuria. Hemodynamically stable, afebrile. Patient is well and bottle supplementing. Resting comfortably in nursery with in arms. Patient reports she is eating, voiding, ambulating independently and without difficulty. Patient denies any problems or concerns at this time except mild-moderate intermittent uterine cramping relieved with Tylenol and Ibuprofen and 2+ pitting edema to BLE. Patient reports moderate to large rubra lochia with no clots. Functional Status: Reports: Pain Controlled - Review of Systems General: Reports: No Symptoms HEENT: Reports: No Symptoms Pulmonary: Reports: No Symptoms Cardiovascular: Reports: No Symptoms Gastrointestinal: Reports: No Symptoms Genitourinary: Reports: No Symptoms Musculoskeletal: Reports: No Symptoms Skin: Reports: No Symptoms Neurological: Reports: No Symptoms Psychiatric: Reports: No Symptoms - General Info Date of Service: 04/21/20 - Patient Data Vital Signs - Most Recent: Last Vital Signs Temp 98.3 F 04/21/20 09:00 Pulse 114 H 04/21/20 09:00 Resp 18 04/21/20 09:00 BP 120/90 04/21/20 09:00 Pulse Ox 98 04/21/20 09:00 Weight - Most Recent: 172 lb Lab Results - Last 24 Hours: Laboratory Results - last 24 hr 04/21/20 Range/Units 05:33 Hgb 7.4 L (12.0-16.0) g/dL Hct 23.4 L (36.0-46.0) % Med Orders - Current: Current Medications Acetaminophen (Tylenol Extra Strength) 500 mg PO Q4H PRN PRN Reason: Pain Acetaminophen (Tylenol Extra Strength) 1,000 mg PO Q4H PRN PRN Reason: Pain Benzocaine/Menthol (Dermoplast Pain Relief 20%-0.5% [place]) 78 gm TOP ASDIRECTED PRN PRN Reason: Perineal Comfort Measure Bisacodyl (Dulcolax) 10 mg RECTAL ONETIME PRN PRN Reason: Constipation Docusate Sodium (Colace) 100 mg PO BID PRN PRN Reason: Constipation Last Admin: 04/20/20 22:38 Dose: 100 mg Documented by: Emollient Ointment (Lansinoh Hpa) 0 gm TOP ASDIRECTED PRN PRN Reason: Sore Nipples Ibuprofen (Motrin) 400 mg PO Q4H PRN PRN Reason: Pain Ibuprofen (Motrin) 800 mg PO Q6H PRN PRN Reason: Pain Last Admin: 04/20/20 22:38 Dose: 800 mg Documented by: Nifedipine (Procardia Xl) 60 mg PO BEDTIME [facility] Last Admin: 04/20/20 22:37 Dose: 60 mg Documented by: Oxycodone HCl (Oxycodone) 5 mg PO Q2H PRN PRN Reason: Pain Polysaccharide Iron Complex (Ferrex 150) 150 mg PO BID [facility] Last Admin: 04/21/20 09:21 Dose: 150 mg Documented by: Carly Munoz) 1 pad TOP ASDIRECTED PRN PRN Reason: comfort care Discontinued Medications Acetaminophen (Tylenol Extra Strength) 1,000 mg PO .ONCE [facility] Last Admin: 04/19/20 13:44 Dose: 1,000 mg Documented by: Acetaminophen (Tylenol Extra Strength) 1,000 mg PO Q4H PRN PRN Reason: Pain Butorphanol Tartrate (Stadol) 1 mg IVPUSH Q1H PRN PRN Reason: Pain Last Admin: 04/20/20 11:57 Dose: 1 mg Documented by: Carboprost Tromethamine (Hemabate Ds) 250 mcg IM ASDIRECTED PRN PRN Reason: Post Hemorrhage Hydroxyzine Pamoate (Vistaril) 25 mg PO ONETIME ONE Stop: 04/20/20 01:23 Last Admin: 04/20/20 01:57 Dose: 25 mg Documented by: Lactated Ringer's (Ringers, Lactated) 1,000 mls @ 150 mls/hr IV ASDIRECTED [facility] Last Admin: 04/20/20 18:44 Dose: 150 mls/hr Documented by: Oxytocin/Sodium Chloride (Oxytocin 30 Unit/500 Ml-Ns) 30 unit in 500 mls @ 500 mls/hr IV TITRATE JULIAN Tranexamic Acid 1,000 mg/ (Sodium Chloride) 110 mls @ 660 mls/hr IV ONETIME PRN PRN Reason: Bleeding Oxytocin/Sodium Chloride (Oxytocin 30 Unit/500 Ml-Ns) 30 unit in 500 mls @ 2 mls/hr IV TITRATE JULIAN; Protocol Last Titration: 04/20/20 15:44 Dose: 4 munits/min, 4 mls/hr Documented by: Ampicillin Sodium 2 gm/ Sodium (Chloride) 100 mls @ 200 mls/hr IV ONETIME ONE Stop: 04/19/20 16:31 Last Admin: 04/19/20 17:09 Dose: 200 mls/hr Documented by: Ampicillin Sodium 1 gm/ Sodium (Chloride) 50 mls @ 100 mls/hr IV Q4H JULIAN Last Admin: 04/20/20 18:45 Dose: 100 mls/hr Documented by: Fentanyl/Bupivacaine HCl (Fentanyl/Bupivacaine/Ns 2 Mcg-0.125% 250 Ml) Confirm Administered Dose 250 mls @ as directed .ROUTE .STK-MED ONE Stop: 04/20/20 15:05 Last Admin: 04/20/20 17:43 Dose: Not Given Documented by: Lidocaine HCl (Xylocaine 1%) 50 ml INJECT ONETIME PRN PRN Reason: Laceration repair Methylergonovine Maleate (Methergine) 0.2 mg IM ASDIRECTED PRN PRN Reason: Post Hemorrhage Misoprostol (Cytotec) 200 mcg PO ONETIME PRN PRN Reason: Post Hemorrhage Misoprostol (Cytotec) 25 mcg VAG ONETIME PRN PRN Reason: Cervical Ripening Last Admin: 04/19/20 17:11 Dose: 25 mcg Documented by: Misoprostol (Cytotec) 25 mcg VAG Q4H PRN PRN Reason: Cervical Ripening Misoprostol (Cytotec) 25 mcg PO ONETIME PRN PRN Reason: Cervical Ripening Last Admin: 04/19/20 17:12 Dose: 25 mcg Documented by: Misoprostol (Cytotec) 25 mcg PO Q4H PRN PRN Reason: Cervical Ripening Nalbuphine HCl (Nubain) 10 mg IVPUSH Q1H PRN PRN Reason: Pain (severe 7-10) Nifedipine (Procardia Xl) 60 mg PO ONETIME ONE Stop: 04/19/20 19:16 Last Admin: 04/19/20 19:42 Dose: 60 mg Documented by: Ondansetron HCl (Zofran) 4 mg IVPUSH Q4H PRN PRN Reason: Nausea/Vomiting Last Admin: 04/20/20 17:31 Dose: 4 mg Documented by: Sodium Chloride (Saline Flush) 10 ml FLUSH ASDIRECTED PRN PRN Reason: Keep Vein Open Sodium Chloride (Saline Flush) 2.5 ml FLUSH ASDIRECTED PRN PRN Reason: Keep Vein Open Sodium Chloride (Normal Saline) 10 ml IV ASDIRECTED PRN PRN Reason: IV Use Sterile Water (Sterile Water For Irrigation) 1,000 ml IRR ASDIRECTED PRN PRN Reason: delivery Terbutaline Sulfate (Brethine) 0.25 mg SUBCUT ASDIRECTED PRN PRN Reason: Tacysystole Last Admin: 04/19/20 21:18 Dose: 0.25 mg Documented by: - Interaction Disposition, : [place] to Nursery Infant Interaction: Holding Infant Feeding: Bottle Fed Infant, Breastfed Infant; Nursed Well, Continues to Breastfeed, Encouraged to Breastfeed Support Person: - Recovery Exam Fundal Tone: Firm Fundal Level: At Umbilicus Fundal Placement: Midline Lochia Amount: Large Lochia Color: Rubra/Red Perineum Description: Edematous, Other (see below) (Approximated, hemostatic.) Episiotomy/Laceration: Approximated Bladder Status: Voiding Urinary Elimination: Voided - Exam General: Alert, Oriented, Cooperative, No Acute Distress HEENT: Pupils Equal, Pupils Reactive, Mucous Membr. Moist/[place] Neck: Supple Lungs: Clear to Auscultation, Normal Respiratory Effort Cardiovascular: Regular Rate, Regular Rhythm GI/Abdominal Exam: Normal Bowel Sounds, Soft, Non-Tender, No Organomegaly, No Distention Extremities: Normal Inspection, Normal Range of Motion, Non-Tender, No Pedal Edema, Normal Capillary Refill Skin: Warm, Dry, Intact Wound/Incisions: No Drainage Neurological: No New Focal Deficit, Normal Gait, Normal Speech, Normal Tone, Strength Equal Bilateral Psy/Mental Status: Alert, Normal Affect, Normal Mood - Problem List & Annotations (1) (spontaneous vaginal delivery) SNOMED Code(s): 385471436 Code(s): O80 - ENCOUNTER FOR FULL-TERM UNCOMPLICATED DELIVERY Status: Acute Priority: High Current Visit: Yes (2) 36 weeks gestation of SNOMED Code(s): 99444419 Code(s): Z3A.36 - 36 WEEKS GESTATION OF Status: Acute Priority: High Current Visit: Yes (3) GDM, class A2 SNOMED Code(s): 25646501 Code(s): O24.419 - GESTATIONAL DIABETES MELLITUS IN , UNSP CONTROL Status: Acute Priority: High Current Visit: Yes (4) PIH ( induced hypertension), antepartum SNOMED Code(s): 03994028, 50431675 Code(s): O13.9 - GESTATIONAL HTN W/O SIGNIFICANT PROTEINURIA, UNSP TRIMESTER Status: Acute Priority: High Current Visit: Yes - Problem List Review Problem List Initiated/Reviewed/Updated: Yes - My Orders Last 24 Hours: My Active Orders 04/20/20 Dinner Regular Diet [DIET] 04/20/20 22:25 Patient Status [ADT] Routine May Shower [RC] ASDIRECTED Up ad Jane [RC] ASDIRECTED Vital Signs [RC] PER UNIT ROUTINE Acetaminophen [Tylenol Extra Strength] 1,000 mg PO Q4H PRN Acetaminophen [Tylenol Extra Strength] 500 mg PO Q4H PRN Benzocaine/Menthol [Dermoplast Pain Relief 20%-0.5% [place]] 78 gm TOP ASDIRECTED PRN Docusate Sodium [Colace] 100 mg PO BID PRN Ibuprofen [Motrin] 400 mg PO Q4H PRN Ibuprofen [Motrin] 800 mg PO Q6H PRN Lanolin [Lansinoh HPA] See Dose Instructions TOP ASDIRECTED PRN bisacodyL [Dulcolax] 10 mg RECTAL ONETIME PRN oxyCODONE 5 mg PO Q2H PRN witch Josse [Tucks] 1 pad TOP ASDIRECTED PRN Assess Lochia [WOMSER] Per Unit Routine Assess Uterine Involution [WOMSER] Per Unit Routine Ice Therapy [OM.PC] Per Unit Routine Perineal Care [OM.PC] Per Unit Routine Peripheral IV Discontinue [OM.PC] Routine Sitz Bath [OM.PC] Per Unit Routine Resuscitation Status Routine 04/20/20 22:26 Cooling Warming Measures [RC] ASDIRECTED 04/20/20 22:30 Iron Polysaccharides Complex [Ferrex 150] 150 mg PO BID NIFEdipine [Procardia XL] 60 mg PO BEDTIME - Plan Plan:: Continue inpatient stay to unit S/P complicated with 60 second shoulder dystocia. Hx of GDM (metformin) and PIH with proteinuria. GBS pos with appropriate antibiotic prophylaxis. 60 mg Procardia XL PO daily. +2 BLE pitting edema noted, voiding frequently and well. Will likely change medication regiment to HCTZ 12.5 mg daily upon discharge to manage BPs and edema. Hgb down from 9.7 to 7.4, asymptomatic at this time; moderate to large rubra lochia with no clots; BID iron supplementation in process. May consider PRBC transfusion if she becomes symptomatic. Dr. Lua notified and agreeable with POC. Possible discharge in 1-2 days pending patient status.
[2020-04-21] MEDS: Hydrochlorothiazide 12.5 MG Cap PO SCH (12:10)
[2020-04-21] MEDS: Acetaminophen 500 MG Tab PO PRN (16:42)
[2020-04-21] MEDS: Docusate Sodium 100 MG Cap PO PRN (20:43)
[2020-04-21] MEDS: Ibuprofen 800 MG Tab PO PRN (20:43)
[2020-04-22] MEDS: Acetaminophen 500 MG Tab PO PRN (08:08)
[2020-04-22] MEDS: Docusate Sodium 100 MG Cap PO PRN (09:08)
[2020-04-22] MEDS: Hydrochlorothiazide 12.5 MG Cap PO SCH (09:08)
[2020-04-22] MEDS: Iron Polysaccharides Complex 150 MG Cap PO SCH (09:08)
--- NOTE | 2020-04-22 10:53 | PCM.DCSUM1 ---
Discharge Summary - Hospital Course Free Text/Narrative:: Discharge home with medications for elevated blood pressure. Follow up in 1 week for blood pressure check and 6 weeks for visit. Diagnosis: Stroke: No Modified Andrew Scale: No Symptoms at All Modified Andrew Scale Score: 0 - Discharge Data Discharge Date: 04/22/20 Discharge Disposition: Home, Self-Care 01 Condition: Good - Referral to Home Health Primary Care Physician: PCP Unobtainable - Patient Instructions Diet: Usual Diet as Tolerated Activity: As Tolerated, No Strenuous Activities, Rest and Relax Today Driving: May Drive Today Showering/Bathing: May Shower Notify Provider of: Fever, Increased Pain, Swelling and Redness, Nausea and/or Vomiting Other/Special Instructions: Discharge home with medications for elevated blood pressure. Follow up in 1 week for blood pressure check and 6 weeks for visit. - Discharge Plan *PRESCRIPTION DRUG MONITORING PROGRAM REVIEWED*: Not Applicable *COPY OF PRESCRIPTION DRUG MONITORING REPORT IN PATIENT BORIS: Not Applicable Home Medications: Home Meds metFORMIN [Glucophage] 500 mg PO BIDMEALS 02/29/20 [History] Oxygen Therapy Mode: Room Air Referrals: [facility] [Outside] Mary Jane Mills CNM [Mid-] - 06/01/20 1:00 pm - Discharge Summary/Plan Comment DC Time >30 min.: No - General Info Date of Service: 04/22/20 Admission Dx/Problem (Free Text: Patient Status Order with Admit Dx/Problem 04/19/20 12:31 Patient Status [ADT] Routine 04/19/20 15:00 Patient Status [ADT] Routine Admission Diagnosis/Problem Admission Diagnosis/Problem 04/19/20 16:40 Elza is a 25 yo PPD0 S/P complicated by shoulder dystocia (60 seconds) to NBF at 36.3 weeks gestation. O pos, RI, GBS pos with adequate antibiotic prophylaxis prior to . Pertinent history includes: GDM controlled with metformin, PIH with proteinuria. Hemodynamically stable, afebrile. Patient is well and bottle supplementing. Resting comfortably in nursery with in arms. Patient reports she is eating, voiding, ambulating independently and without difficulty. Patient denies any problems or concerns at this time except mild-moderate intermittent uterine cramping relieved with Tylenol and Ibuprofen and 2+ pitting edema to BLE. Patient reports moderate to large rubra lochia with no clots. Functional Status: Reports: Pain Controlled, Tolerating Diet, Ambulating, Urinating (---) - Review of Systems General: Reports: No Symptoms HEENT: Reports: No Symptoms Pulmonary: Reports: No Symptoms Cardiovascular: Reports: No Symptoms Gastrointestinal: Reports: No Symptoms Genitourinary: Reports: No Symptoms Musculoskeletal: Reports: No Symptoms Skin: Reports: No Symptoms Neurological: Reports: No Symptoms Psychiatric: Reports: No Symptoms - Patient Data Vitals - Most Recent: Last Vital Signs Temp 36.9 C 04/22/20 07:36 Pulse 79 04/22/20 07:36 Resp 14 04/22/20 07:36 BP 140/97 H 04/22/20 09:10 Pulse Ox 97 04/22/20 07:36 Weight - Most Recent: 78.018 kg Lab Results - Last 24 hrs: Laboratory Results - last 24 hr 04/19/20 Range/Units 16:45 RPR Non-Reac (Non-Reac) Med Orders - Current: Current Medications Acetaminophen (Tylenol Extra Strength) 500 mg PO Q4H PRN PRN Reason: Pain Acetaminophen (Tylenol Extra Strength) 1,000 mg PO Q4H PRN PRN Reason: Pain Last Admin: 04/22/20 08:08 Dose: 1,000 mg Documented by: Benzocaine/Menthol (Dermoplast Pain Relief 20%-0.5% Roy) 78 gm TOP ASDIRECTED PRN PRN Reason: Perineal Comfort Measure Bisacodyl (Dulcolax) 10 mg RECTAL ONETIME PRN PRN Reason: Constipation Docusate Sodium (Colace) 100 mg PO BID PRN PRN Reason: Constipation Last Admin: 04/22/20 09:08 Dose: 100 mg Documented by: Emollient Ointment (Lansinoh Hpa) 0 gm TOP ASDIRECTED PRN PRN Reason: Sore Nipples Hydrochlorothiazide (Hydrochlorothiazide) 12.5 mg PO DAILY JULIAN Last Admin: 04/22/20 09:08 Dose: 12.5 mg Documented by: Ibuprofen (Motrin) 400 mg PO Q4H PRN PRN Reason: Pain Ibuprofen (Motrin) 800 mg PO Q6H PRN PRN Reason: Pain Last Admin: 04/21/20 20:43 Dose: 800 mg Documented by: Oxycodone HCl (Oxycodone) 5 mg PO Q2H PRN PRN Reason: Pain Polysaccharide Iron Complex (Ferrex 150) 150 mg PO BID JULIAN Last Admin: 04/22/20 09:08 Dose: 150 mg Documented by: Carly Oliveira (Kami) 1 pad TOP ASDIRECTED PRN PRN Reason: comfort care Last Admin: 04/22/20 05:06 Dose: 1 tub Documented by: Discontinued Medications Acetaminophen (Tylenol Extra Strength) 1,000 mg PO .ONCE JULIAN Last Admin: 04/19/20 13:44 Dose: 1,000 mg Documented by: Acetaminophen (Tylenol Extra Strength) 1,000 mg PO Q4H PRN PRN Reason: Pain Butorphanol Tartrate (Stadol) 1 mg IVPUSH Q1H PRN PRN Reason: Pain Last Admin: 04/20/20 11:57 Dose: 1 mg Documented by: Carboprost Tromethamine (Hemabate Ds) 250 mcg IM ASDIRECTED PRN PRN Reason: Post Hemorrhage Hydroxyzine Pamoate (Vistaril) 25 mg PO ONETIME ONE Stop: 04/20/20 01:23 Last Admin: 04/20/20 01:57 Dose: 25 mg Documented by: Lactated Ringer's (Ringers, Lactated) 1,000 mls @ 150 mls/hr IV ASDIRECTED REPLACED BY [facility] Last Admin: 04/20/20 18:44 Dose: 150 mls/hr Documented by: Oxytocin/Sodium Chloride (Oxytocin 30 Unit/500 Ml-Ns) 30 unit in 500 mls @ 500 mls/hr IV TITRATE JULIAN Tranexamic Acid 1,000 mg/ (Sodium Chloride) 110 mls @ 660 mls/hr IV ONETIME PRN PRN Reason: Bleeding Oxytocin/Sodium Chloride (Oxytocin 30 Unit/500 Ml-Ns) 30 unit in 500 mls @ 2 mls/hr IV TITRATE JULIAN; Protocol Last Titration: 04/20/20 15:44 Dose: 4 munits/min, 4 mls/hr Documented by: Ampicillin Sodium 2 gm/ Sodium (Chloride) 100 mls @ 200 mls/hr IV ONETIME ONE Stop: 04/19/20 16:31 Last Admin: 04/19/20 17:09 Dose: 200 mls/hr Documented by: Ampicillin Sodium 1 gm/ Sodium (Chloride) 50 mls @ 100 mls/hr IV Q4H JULIAN Last Admin: 04/20/20 18:45 Dose: 100 mls/hr Documented by: Fentanyl/Bupivacaine HCl (Fentanyl/Bupivacaine/Ns 2 Mcg-0.125% 250 Ml) Confirm Administered Dose 250 mls @ as directed .ROUTE .STK-MED ONE Stop: 04/20/20 15:05 Last Admin: 04/20/20 17:43 Dose: Not Given Documented by: Lidocaine HCl (Xylocaine 1%) 50 ml INJECT ONETIME PRN PRN Reason: Laceration repair Methylergonovine Maleate (Methergine) 0.2 mg IM ASDIRECTED PRN PRN Reason: Post Hemorrhage Misoprostol (Cytotec) 200 mcg PO ONETIME PRN PRN Reason: Post Hemorrhage Misoprostol (Cytotec) 25 mcg VAG ONETIME PRN PRN Reason: Cervical Ripening Last Admin: 04/19/20 17:11 Dose: 25 mcg Documented by: Misoprostol (Cytotec) 25 mcg VAG Q4H PRN PRN Reason: Cervical Ripening Misoprostol (Cytotec) 25 mcg PO ONETIME PRN PRN Reason: Cervical Ripening Last Admin: 04/19/20 17:12 Dose: 25 mcg Documented by: Misoprostol (Cytotec) 25 mcg PO Q4H PRN PRN Reason: Cervical Ripening Nalbuphine HCl (Nubain) 10 mg IVPUSH Q1H PRN PRN Reason: Pain (severe 7-10) Nifedipine (Procardia Xl) 60 mg PO ONETIME ONE Stop: 04/19/20 19:16 Last Admin: 04/19/20 19:42 Dose: 60 mg Documented by: Nifedipine (Procardia Xl) 60 mg PO BEDTIME JULIAN Last Admin: 04/20/20 22:37 Dose: 60 mg Documented by: Ondansetron HCl (Zofran) 4 mg IVPUSH Q4H PRN PRN Reason: Nausea/Vomiting Last Admin: 04/20/20 17:31 Dose: 4 mg Documented by: Sodium Chloride (Saline Flush) 10 ml FLUSH ASDIRECTED PRN PRN Reason: Keep Vein Open Sodium Chloride (Saline Flush) 2.5 ml FLUSH ASDIRECTED PRN PRN Reason: Keep Vein Open Sodium Chloride (Normal Saline) 10 ml IV ASDIRECTED PRN PRN Reason: IV Use Sterile Water (Sterile Water For Irrigation) 1,000 ml IRR ASDIRECTED PRN PRN Reason: delivery Terbutaline Sulfate (Brethine) 0.25 mg SUBCUT ASDIRECTED PRN PRN Reason: Tacysystole Last Admin: 04/19/20 21:18 Dose: 0.25 mg Documented by: - Exam General: Reports: Alert, Oriented, Cooperative, No Acute Distress Lungs: Reports: Normal Respiratory Effort Cardiovascular: Reports: Regular Rhythm GI/Abdominal Exam: Soft, Non-Tender, No Distention, Pelvis Stable (Female) Exam: Deferred, Vaginal Bleeding Rectal (Female) Exam: Deferred Back Exam: Reports: Normal Inspection, Full Range of Motion, Other (draining what appears to be serous fluid not spinal fluid.) Extremities: Normal Inspection, Normal Range of Motion, Non-Tender, No Pedal Edema, Normal Capillary Refill Skin: Reports: Warm, Dry, Intact Wound/Incisions: Reports: Healing Well, No Drainage Neurological: Reports: No New Focal Deficit, Normal Speech, Normal Tone, Strength Equal Bilateral, Sensation Intact Psy/Mental Status: Reports: Alert, Normal Affect, Normal Mood
--- NOTE | 2020-04-22 12:26 | PCM.SN.2 ---
- Free Text/Narrative Note: Patient continues to have saturated bandages where the epidural cath was placed. Discussed with patient and patient states epidural was adequate however could feel every contraction and rated pain 8/10 when baby was . Pt also states she could feel the laceration repair. The nurses report the fluids PH was tested and it was 7. Pt exhibits no signs or symptoms of a CSF leak. Pt discharged home today.
== END 2020-04-22 18:14 | disposition home or self-care (01) | DRG 542 ==
LOC: MW.OBCHECK 10:35 → MW.OB 10:38 → MW.OBCHECK 15:00 → MW.OB 15:00 → OBSVTOIN 04-20 21:40 → MW.OB 04-21 00:01
PROVIDERS: ADMIT Obstetrics & Gynecology; ATTEND Obstetrics & Gynecology
PROC: 10E0XZZ Delivery of Products of Conception, External Approach (ICD-10-PCS; principal; 2020-04-20)
PROC: 3E0P7VZ Introduction of Hormone into Female Reproductive, Via Natural or Artificial Opening (ICD-10-PCS; 2020-04-20)
PROC: 0DQR0ZZ Repair Anal Sphincter, Open Approach (ICD-10-PCS; 2020-04-20)
PROC: 3E0R3BZ Introduction of Anesthetic Agent into Spinal Canal, Percutaneous Approach (ICD-10-PCS; 2020-04-20)
PROC: 00HU33Z Insertion of Infusion Device into Spinal Canal, Percutaneous Approach (ICD-10-PCS; 2020-04-20)
DX: O13.4 Gestational [pregnancy-induced] hypertension without significant proteinuria, complicating childbirth (principal); Z3A.36 36 weeks gestation of pregnancy; Z37.0 Single live birth; O60.14X0 Preterm labor third trimester with preterm delivery third trimester, not applicable or unspecified; O24.425 Gestational diabetes mellitus in childbirth, controlled by oral hypoglycemic drugs; Z20.828 Contact with and (suspected) exposure to other viral communicable diseases; O70.20 Third degree perineal laceration during delivery, unspecified; O69.1XX0 Labor and delivery complicated by cord around neck, with compression, not applicable or unspecified; O66.0 Obstructed labor due to shoulder dystocia
CPT/HCPCS: 01967; 36415; 51702; 59025; 59200; 59409; 80053; 82570; 82962; 84156; 84550; 85014; 85018; 85025; 85027; 86592; 86850; 86900; 86901; A9270-GY; J0290; J0595; J2405; J2590; J3105; J7050; J7120; U0002